=== PATIENT | female | born 1985 | race African-American/Black ===

== ENCOUNTER 2016-07-21 09:39 | Inpatient (IN) ==
[2016-07-21] MEDS ORDERED: FAMOTIDINE 20 MG/2 ML VIAL IV ONE ×2 (09:54→17:00)
[2016-07-21] MEDS ORDERED: ceFAZolin 2,000 MG in SODIUM CHLORIDE 0.9% 100 ML IV ONE (09:54)
[2016-07-21] MEDS ORDERED: CITRIC ACID/SODIUM CITRATE 30 ML UDCUP PO ONE ×2 (09:54→17:00)
[2016-07-21] MEDS ORDERED: ONDANSETRON 4 MG/2 ML VIAL IV PRN ×2 (10:16→17:36)
[2016-07-21] MEDS ORDERED: BUTORPHANOL 2 MG/ML VIAL IV PRN (10:16)
[2016-07-21 10:28] LABS: Basophils % 0.2 % (0.0-0.8); Eosinophils # 0.1 10*3/uL (0.0-0.87); Eosinophils % 1.2 % (0.00-10.9); Hematocrit 29.2 VOL% (35.7-47.0); Hemoglobin 9.5 GM/DL (12.0-16.0); Immature Granulocytes % 0.7 %; Immature Granulocytes Absolute 0.06 #; Lymphocytes # 1.7 10*3/uL (1.4-4.0); Lymphocytes % 20.5 % (21.3-54.2); Mean Corpuscular HGB Conc 32.5 GM/DL (32-36); Mean Corpuscular Hemoglobin 26 PG (27-34); Mean Corpuscular Volume 78.3 FL (87-102); Mean Platelet Volume 9.3 FL (9.6-12.0); Monocytes # 0.5 10*3/uL (0.11-0.8); Monocytes % 5.6 % (1.7-12.7); NRBC # 0.03 10*3/uL; Neutrophils # 5.9 10*3/uL (1.4-7.4); Neutrophils % 71.8 % (38.7-73.9); Platelet Count 283 T/CUMM (130-400); Red Blood Count 3.73 MC/CUMM (3.8-5.5); Red Cell Distribution Width 17.6 % (9.3-17.3); White Blood Count 8.3 T/CUMM (4-12)
[2016-07-21] MEDS: LACTATED RINGERS 1,000 ML IV SCH ×2 (10:30→14:51)
[2016-07-21] MEDS ORDERED: OXYTOCIN/LR 20 UNIT/1,000 ML BAG IV SCH (10:30)
--- NOTE | 2016-07-21 10:37 | OB/GYN History & Physical ---
History of Present Illness Chief complaint: In for primary section due to breech presentation History of present illness: Ms. Pickering is a 31 year old female who is a 7 para 6 who presented to the labor department for elective primary section due to breech presentation. A couple of days ago the patient had an ultrasound that revealed breech presentation. Upon arrival to the labor department today the patient was examined and appeared to be in vertex presentation, a quick look ultrasound confirmed that the was in vertex position. Therefore the patient will be admitted for elective augmentation of labor with Pitocin per protocol. The risk and benefits of been thoroughly discussed with the patient significant other, plan of care has been discussed with Dr. Leary and all parties are in agreement plan. The patient has had 6 previous vaginal deliveries and the largest weighed 7 pounds and 12 ounces and she reported no complications with any of her pregnancies. The patient received her care through the [facility] and she received routine care and her course was unavailable. labs: She is O+, RPR is nonreactive, hepatitis B negative, HIV negative, GC chlamydia cultures negative, rubella is immune, GBS culture is negative. Home Medications Medication Instructions Recorded Confirmed Type Multivitamin () [ 1 tablet PO DAILY 05/27/16 07/14/16 History Vitamin] Allergies Allergy/AdvReac Type Severity Reaction Status Date / Time No Known Allergies Allergy Verified 07/14/16 23:05 12 point system: reviewed and no additional remarkable complaints except as stated Medical,Surgical,& Family Hx - Medical History Medical History: noncontributory - Surgical History Surgical History: noncontributory - Family History Family History: Reports;: Family Cancer (Father has bone cancer), Family Heart Disease - Social History Smoking Status: Never smoker Marital Status: Lives With:: Spouse Functional capacity: independent ambulation [employer]am [employer] - Constitutional General appearance: no acute distress - Antepartum / Post Antepartum Exam Cervix -Dilatation: 4 cm Effacement: 70% Station: -2 Rupture: Intact Presentation: Vertex Heart Rate: 140 Breast: bilateral: normal Abdomen obstetrics: Present: bowel sounds normal Uterus exam: Present: enlarged Anus/Rectum: Present: normal perianal skin - Head Head exam: Present: normal inspection - Respiratory Respiratory exam: Present: clear to auscultation bilaterally - Cardiovascular Cardiovascular exam: Present: regular rate and rhythm - GI/Abdominal GI/Abdominal exam: Present: normal bowel sounds, soft - Back Exam Back exam: Present: normal inspection - Neurological Exam Neurological exam: Present: alert, oriented X3 - Psychiatric Psychiatric exam: Present: normal affect, normal mood - Skin Skin exam: Present: normal color, warm Assessment and Plan (1) Term Status: Acute Assessment and plan: Admit IV fluids IV Pitocin per protocol Artificial rupture membranes Epidural anesthesia if desired IV pain meds for pain control if desired Anticipate Current Visit: Yes
[2016-07-21 10:57] LABS: Albumin 2.6 G/DL (3.4-5.0); Bilirubin,Total 0.5 MG/DL (0.2-1.0); Osmolality,Calculated 274.5 MOS/KG (273-304); Potassium 3.9 MMOL/L (3.5-5.1); Total Protein 6.6 G/DL (6.4-8.3)
[2016-07-21] MEDS: MEPERIDINE 50 MG/1 ML VIAL IV PRN ×2 (11:28→13:40)
[2016-07-21] MEDS: BUTORPHANOL 1 MG/ML VIAL IV PRN ×3 (14:43→16:10)
[2016-07-21] MEDS ORDERED: fentaNYL 2 MCG/ROPIV 0.2% EPID 150 ML EPIDURAL SCH (16:50)
[2016-07-21] MEDS ORDERED: hydrOXYzine HCL 25 MG/1 ML VIAL IM PRN (16:50)
[2016-07-21] MEDS ORDERED: DIPH/TET/ACEL PERT BOOSTER VACCINE 0.5 ML VIAL IM ONE (17:36)
[2016-07-21] MEDS ORDERED: ACETAMINOPHEN 325 MG TABLET PO PRN (17:36)
[2016-07-21] MEDS ORDERED: OXYTOCIN/LR 20 UNIT/1,000 ML BAG IV ONE (17:36)
[2016-07-21] MEDS ORDERED: oxyCODONE/ACETAMINOPHEN 5-325 MG TABLET PO PRN (17:36)
[2016-07-21] MEDS ORDERED: HYDROCORTISONE 2.5% RECTAL CREAM 30 GM TUBE TOP PRN (17:36)
[2016-07-21] MEDS ORDERED: RHO(D) IMMUNE GLOBULIN 300 MCG SYRINGE IM ONE (17:36)
[2016-07-21] MEDS ORDERED: LANOLIN 50% CREAM 0.3 OZ TUBE TOP PRN (17:36)
[2016-07-21] MEDS ORDERED: MEASLES/MUMPS/RUBELLA VACCINE 0.5 ML VIAL SUBCUT ONE (17:36)
[2016-07-21] MEDS ORDERED: BISACODYL 10 MG SUPP RECTAL PRN (17:36)
[2016-07-21] MEDS ORDERED: BENZOCAINE 20%/MENTHOL 0.5% SPRAY 56 GM CAN TOP PRN (17:36)
[2016-07-21] MEDS ORDERED: WITCH HAZEL PADS 100/JAR TOP PRN (17:36)
--- NOTE | 2016-07-21 17:40 | Event Note ---
Delivery note Stage I of labor heart tones category 1 IV Stadol IV Pitocin External monitoring Artificial rupture membranes clear fluid Stage II Vaginal delivery Female infant Apgars 7 and 9 received Narcan subcu Cord blood and cord gas obtained No lacerations were noted weight is pending Delivery time is not available at this time Stage III Spontaneous liver the placenta No lacerations noted Blood loss less than 300 cc Mother stable
[2016-07-21 18:00] LABS: Cord Arterial Blood HCO3 21.5 MMOL/L
[2016-07-21 18:00] LABS: Cord Venous Blood HCO3 21.4 MMOL/L; Cord Venous Blood PCO2 37.8 MMHG; Cord Venous Blood PO2 25.3
[2016-07-21] MEDS: oxyCODONE/ACETAMINOPHEN 5-325 MG TABLET PO PRN (19:14)
[2016-07-21] MEDS: DOCUSATE SODIUM 100 MG CAPSULE PO SCH (21:29)
[2016-07-21] MEDS: IBUPROFEN 800 MG TABLET PO PRN (22:43)
[2016-07-22] MEDS: oxyCODONE/ACETAMINOPHEN 5-325 MG TABLET PO PRN (04:00)
[2016-07-22 07:20] LABS: Basophils % 0.2 % (0.0-0.8); Eosinophils # 0.1 10*3/uL (0.0-0.87); Eosinophils % 0.9 % (0.00-10.9); Hemoglobin 8.8 GM/DL (12.0-16.0); Immature Granulocytes % 0.8 %; Immature Granulocytes Absolute 0.08 #; Lymphocytes # 1.9 10*3/uL (1.4-4.0); Lymphocytes % 18.4 % (21.3-54.2); Mean Corpuscular HGB Conc 32.6 GM/DL (32-36); Mean Corpuscular Hemoglobin 26 PG (27-34); Mean Corpuscular Volume 78.3 FL (87-102); Mean Platelet Volume 9.6 FL (9.6-12.0); Monocytes # 0.6 10*3/uL (0.11-0.8); Monocytes % 5.5 % (1.7-12.7); NRBC # 0.03 10*3/uL; Neutrophils # 7.5 10*3/uL (1.4-7.4); Neutrophils % 74.2 % (38.7-73.9); Platelet Count 258 T/CUMM (130-400); Red Blood Count 3.45 MC/CUMM (3.8-5.5); Red Cell Distribution Width 17.4 % (9.3-17.3); White Blood Count 10.1 T/CUMM (4-12)
[2016-07-22] MEDS: DOCUSATE SODIUM 100 MG CAPSULE PO SCH ×2 (09:30→22:10)
[2016-07-22] MEDS: IBUPROFEN 800 MG TABLET PO PRN ×3 (09:50→22:18)
[2016-07-23] MEDS: DOCUSATE SODIUM 100 MG CAPSULE PO SCH (08:32)
[2016-07-23] MEDS: IBUPROFEN 800 MG TABLET PO PRN (09:15)
[2016-07-23 12:10] VITALS: BP 130/85
--- NOTE | 2016-07-23 12:53 | Discharge Summary ---
Hospital Course - Hospital Course Hospital Course: Status post vaginal postoperative day #2 Physical exam lungs clear, cardiac exam benign, uterus nice and firm Extremities well with no limits neurologic grossly intact Status post vaginal We will discharge today in follow-up her office in 6 weeks Specialty Discharge - Follow Up or Referrals Discharge Plan - Discharge Data Condition at Discharge: Hygiene: may shower Weight Bearing at Discharge: weight bear as tolerated Contact your physician if you experience:: fever over 101, Bleeding - Discharge Medications New oxyCODONE/ACETAMINOPHEN 5-325 [Percocet 5-325] 1 tablet PO Q6H #20 tablet Ibuprofen Tab [Motrin Tab] 800 mg PO TID #30 tablet No Action Multivitamin () [ Vitamin] 1 tablet PO DAILY - Follow Up or Referral - Forms/Instructions Instructions: Depression (GEN), Perineal Care (DC), Vaginal Delivery (DC), Bleeding (DC) Exam - Constitutional Vitals: Period Temp Pulse Resp BP Sys/Allen Pulse Ox Last 24 Hr 97.2 F-97.8 F 75-91 18-20 120-130/65-85 96-98 Discharge Results Procedures and tests throughout hospitalization: Pending Orders 07/21/16 09:54 Urinalysis Routine DS: Provider Date of admission: 07/21/16 09:39 Primary care physician: . No PCP Attending physician on admission: Blanca Leary MD Consults: 07/21/16 09:54 Consult to Anesthesiology [CONS] Routine Consulting Provider: Reason for Anesthesiology: Pre-op Clearance 07/21/16 17:36 Consult to Curing Press Operator [CONS] Routine Consult Curing Press Operator: Breast Feeding Discharging clinician: Blanca Leary MD
--- NOTE | 2016-08-12 12:12 | Discharge Summary ---
This patient was discharged and there was an inadvertent description of her status at the time she wa s discharged. This patient, when she was discharged, it was indicated that she had , but the addendum is her condition at discharge is that she is alive and well.
== END 2016-07-23 13:50 | disposition home or self-care (01) | DRG 560 ==
LOC: N.LD 09:39 → N.OB 20:16
PROVIDERS: ADMIT Obstetrics & Gynecology; ATTEND Obstetrics & Gynecology